=== PATIENT | female | born 1995 | race Hispanic/Latino ===

== ENCOUNTER 2017-06-05 12:38 | Inpatient (IN) | payer BC, OTHER ==
[2017-06-05 12:47] VITALS: O2SAT 99
--- NOTE | 2017-06-05 13:38 | ED PDOC ---
HPI: Psych/Substance Abuse Time Seen by Provider: 06/05/17 12:54 Chief Complaint (Nursing): Anxiety Chief Complaint (Provider): Anxiety attack History Per: Patient History/Exam Limitations: no limitations Onset/Duration Of Symptoms: Mins (prior to arrival) Current Symptoms Are (Timing): Better Associated Symptoms: Anxiety, Suicidal Thoughts Additional Complaint(s): Elda is a 22 y/o female who was brought by EMS for psychiatric evaluation. She reports a history of bipolar disorder, for which she takes Klonopin and Seroquel as needed. States that earlier today she had a panic attack and EMS was called. Patient took Klonopin and feels better now. She admits she occasionally has suicidal ideations. PMD: Provider [place] Past Medical History Reviewed: Historical Data, Nursing Documentation, Vital Signs Vital Signs: Last Vital Signs Temp 99.0 F 06/05/17 12:43 Pulse 86 06/05/17 12:43 Resp 20 06/05/17 12:43 BP 122/77 06/05/17 12:43 Pulse Ox 99 06/05/17 12:43 - Medical History PMH: Bipolar Disorder Denies: HIV - Surgical History Surgical History: No Surg Hx - Family History Family History: States: Unknown Family Hx - Social History Current smoker - smoking cessation education provided: No Alcohol: None Drugs: Denies - Allergies Allergies/Adverse Reactions: Allergies Allergy/AdvReac Type Severity Reaction Status Date / Time No Known Allergies Allergy Verified 05/29/14 00:16 Review of Systems ROS Statement: Except As Marked, All Systems Reviewed And Found Negative Psych: Positive for: Anxiety, Suicidal ideation Physical Exam - Reviewed Nursing Documentation Reviewed: Yes Vital Signs Reviewed: Yes - Physical Exam Appears: Positive for: Well, Non-toxic, No Acute Distress Head Exam: Positive for: ATRAUMATIC, NORMAL INSPECTION, NORMOCEPHALIC Skin: Positive for: Normal Color, Warm, Dry Eye Exam: Positive for: Normal appearance Neck: Positive for: Normal Cardiovascular/Chest: Positive for: Regular Rate, Rhythm. Negative for: Murmur Respiratory: Positive for: Normal Breath Sounds. Negative for: Respiratory Distress Extremity: Positive for: Normal ROM. Negative for: Pedal Edema, Deformity Neurologic/Psych: Positive for: Alert, Oriented - Laboratory Results Result Diagrams: 06/05/17 14:57 06/05/17 14:57 - ECG O2 Sat by Pulse Oximetry: 99 (RA) Pulse Ox Interpretation: Normal Medical Decision Making Medical Decision Making: Initial Plan: --Pending crisis evaluation Time: 14:21 --Discussed case with break out worker. --Patient will be admitted for observation per Dr. Baker. Clinical Impression: Bipolar disorder Scribe Attestation: Documented by Velma Quiñonez, acting as a scribe for Jeni Suazo PA-C Provider Scribe Attestation: All medical record entries made by the Scribe were at my direction and personally dictated by me. I have reviewed the chart and agree that the record accurately reflects my personal performance of the history, physical exam, medical decision making, and the department course for this patient. I have also personally directed, reviewed, and agree with the discharge instructions and disposition. Disposition - Patient ED Disposition Is Patient to be Admitted: Yes - Disposition Disposition Time: 16:18 Forms: [employer] (Belarusian) - Pt Status Changed To: Hospital Disposition Of: Inpatient - Admit Certification Admit to Inpatient:: After my assessment, the patient will require hospitalization for at least two midnights. This is because of the severity of symptoms shown, intensity of services needed, and/or the medical risk in this patient being treated as an outpatient.
[2017-06-05 15:06] LABS: HEMATOCRIT 39.5 % (34.0-47.0); MEAN CELL VOLUME 87.5 fl (81.0-99.0); MEAN CORPUSCULAR HEMOGLOBIN 30.2 pg (27.0-31.0); MEAN CORPUSCULAR HGB CONC 34.5 g/dL (33.0-37.0); RED CELL DISTRIBUTION WIDTH 12.7 % (11.5-14.5)
[2017-06-05 15:13] LABS: RBC URINE 2 /hpf (0-3); URINE BILIRUBIN NEGATIVE (NEGATIVE); URINE BLOOD NEGATIVE (NEGATIVE); URINE COLOR YELLOW (YELLOW); URINE GLUCOSE (UA) NEG (Normal); URINE KETONE NEGATIVE (NEGATIVE); URINE LEUKOCYTE ESTERASE NEG Leu/uL (Negative); URINE PROTEIN NEGATIVE (NEGATIVE); URINE UROBILINOGEN 0.2-1.0 mg/dL (0.2-1.0)
[2017-06-05 15:26] LABS: ALB/GLOB RATIO 1.3 (1.0-2.1); ALCOHOL SERUM < 10 mg/dl (0-10); ALKALINE PHOSPHATASE 58 U/L (38-126); ALT/SGPT 20 U/L (9-52); AST/SGOT 27 U/L (14-36); BILIRUBIN,TOTAL 0.4 mg/dl (0.2-1.3); BLOOD UREA NITROGEN 9 mg/dl (7-17); CARBON DIOXIDE 21 mmol/L (22-30); CHLORIDE 106 mmol/L (98-107); GFR AFRICAN-AMERICAN > 60; GLUCOSE,RANDOM 90 mg/dL (65-105); SODIUM 143 mmol/l (132-148); TOTAL PROTEIN 9.1 G/DL (6.3-8.2)
[2017-06-05] MEDS ORDERED: Magnesium Hydroxide Susp 30 ml UD PO PRN (17:56)
[2017-06-05] MEDS ORDERED: DiphenhydrAMINE 50 mg/ml Inj IM PRN (17:56)
[2017-06-05] MEDS ORDERED: Alum-Mag Hydrox-Simethicone Susp (30 mL) PO PRN (17:56)
[2017-06-05 18:30] VITALS: RESP 18
--- NOTE | 2017-06-05 18:41 | PCM.BM ---
<Lorena Zamarripa - Last Filed: 06/05/17 18:39> Treatment Plan Problems - Problems identified on initial assessmt Hopelessness/Helplessness Date Initiated: 06/05/17 Time Initiated: 18:40 Assessment reference: NA Status: Active Treatment assets and liabiliti Patient Assests: cooperative, educated, ADL independent, physically healthy Patient Liabilities: poor support system, relationship conflicts - Milieu Protocol Maintain good personal hygiene: daily Remind patient to perform daily oral care , daily Assist patient to perform ADL's, every shift Encourage regular showers Conduct patient checks and document Observation sheet: Q15 minutes Maintain personal safety: every shift Educate patient to report safety concerns to staff, every shift Monitor environment for contraband/sharps Medication safety: Monitor for expected outcome, potential side effects: every shift, Assess barriers to learning: every shift, Assess readiness for medication education: every shift <Mark Anthony Baker - Last Filed: 06/06/17 12:04> - Diagnosis (1) Bipolar II disorder Status: Acute Interventions: 06/06/17 12:04 psychotherapy pharmacotherapy
[2017-06-06 08:28] LABS: HEMATOCRIT 35.3 % (34.0-47.0); MEAN CELL VOLUME 87.6 fl (81.0-99.0); MEAN CORPUSCULAR HEMOGLOBIN 30.8 pg (27.0-31.0); MEAN CORPUSCULAR HGB CONC 35.2 g/dL (33.0-37.0); RED CELL DISTRIBUTION WIDTH 12.6 % (11.5-14.5); WHITE BLOOD COUNT 5.7 K/uL (4.8-10.8)
[2017-06-06 08:31] LABS: CHOLESTEROL 182 mg/dL (0-199)
[2017-06-06 08:34] LABS: ALB/GLOB RATIO 1.4 (1.0-2.1); ALKALINE PHOSPHATASE 45 U/L (38-126); ALT/SGPT 23 U/L (9-52); AST/SGOT 26 U/L (14-36); BILIRUBIN,TOTAL 0.3 mg/dl (0.2-1.3); BLOOD UREA NITROGEN 12 mg/dl (7-17); CALCIUM 9.2 mg/dL (8.4-10.2); CARBON DIOXIDE 25 mmol/L (22-30); CHLORIDE 108 mmol/L (98-107); GFR AFRICAN-AMERICAN > 60; GLUCOSE,RANDOM 87 mg/dL (65-105); POTASSIUM 3.9 MMOL/L (3.6-5.0); SODIUM 144 mmol/l (132-148); TOTAL PROTEIN 7.6 G/DL (6.3-8.2)
[2017-06-06 09:01] LABS: THYROID STIMULATING HORMONE 1.09 mIU/ML (0.46-4.68)
[2017-06-06 09:08] VITALS: BP 115/68; PULSE 83; TEMP 99.5
--- NOTE | 2017-06-06 12:11 | PCM.PSYCH ---
Initial Psychiatric Evaluation - Initial Psychiatric Evaluation Type of Admission: Voluntary Legal Status: Capacity Chief Complaint (in patient's own words): i was overwhelmed at school and i started to have panic attacks Patient's Reaction to Hospitalization: patient signed voluntarily for admission History of Present Illness and Precipitating Events: patient with history of bipolar II disorder and panic disorder , currently following up with therapist and psychiatrist on campus at [facility], last seen past monday patient reported feeling increasingly anxious and depressed past week due to midterm exams on day of evaluation while heading back to school, she started to experience a panic attack with difficulty to breath on the same day patient also started experiencing suicidal ideations without specific plan, patient was brought to er for evaluation patient reported feeling anxious depressed and overwhelmed with school work, history of self mutilative behavior decreased appetite, no current psychotic symptoms, denied any current manic symptoms of substan denied , occasional use of alcohol and cannabis Current Medications: Active Medications Generic Name Dose Route Start Last Admin Trade Name Freq PRN Reason Stop Dose Admin Acetaminophen 650 mg 06/05/17 17:56 Tylenol 325mg Tab PO Q4 PRN Pain, Mild (1-3) Al Hydrox/Mg Hydrox/Simethicone 30 ml 06/05/17 17:56 Maalox Plus 30 Ml PO Q4 PRN Dyspepsia Diphenhydramine HCl 50 mg 06/05/17 17:56 Benadryl IM Q6 PRN Extrapyramidal S/S Unable PO Diphenhydramine HCl 50 mg 06/05/17 18:07 Benadryl PO Q6 PRN dystonic reaction/EPS Diphenhydramine HCl 25 mg 06/05/17 18:09 Benadryl PO HS PRN Insomnia Haloperidol 5 mg 06/05/17 17:56 Haldol PO Q4 PRN Agitation Haloperidol Lactate 5 mg 06/05/17 17:56 Haldol IM Q4 PRN Agitation, Unable to Take PO Lorazepam 2 mg 06/05/17 17:56 Ativan IM Q4 PRN Anxiety/Agitation,Unable PO Lorazepam 2 mg 06/05/17 18:09 Ativan PO Q4 PRN Anxiety Magnesium Hydroxide 30 ml 06/05/17 17:56 Milk Of Magnesia PO HS PRN Constipation Quetiapine Fumarate 25 mg 06/06/17 09:00 06/06/17 09:16 Seroquel PO 25 mg BID PENG Administration Quetiapine Fumarate 300 mg 06/06/17 22:00 Seroquel PO HS [facility] Past Psychiatric History - Past Psychiatric History Explanation of prior treatment: no history of previous psychiatric hospitalization patient was diagnosed with bipolar II DISORDER ON DECEMBER 2013, since then following up with therapist and psychiatrist on campus at [place] history of self mutilative behavioras per patient last was a month ago patient place onseroquel 350 mg history of suicidal ideations but no attempts History of Abuse: denied History of ETOH/Drug Use: history of alcohol abuse , binging occasiona cannabis use Pertinent Medical Hx (Current Medical&Sleep Prob, Allergies): Allergies Allergy/AdvReac Type Severity Reaction Status Date / Time No Known Allergies Allergy Verified 05/29/14 00:16 Etonogestrel/Ethinyl Estradiol [Nuvaring Vaginal Ring] 1 vag ring PV Q28D QUEtiapine [SEROquel] 300 mg PO HS 06/05/17 QUEtiapine [Seroquel] 25 mg PO BID 06/05/17 clonazePAM [Klonopin] 1 mg PO BID PRN 06/05/17 Mental Status Examination - Personal Presentation Personal Presentation: Looks stated age - Affect Affect: Constricted, Depressed - Motor Activity Motor Activity: Calm - Reliability in Providing Information Reliability in Providing Information: Good - Speech Speech: Organized - Mood Mood: Anxious - Formal Thought Process Formal Thought Process: No Impairment - Hallucinations/Delusions Additional comments: denied perceptual disturbances non elicited - Obsessions/Compulsions Obsessions: No Compulsions: No - Cognitive Functions Orientation: Person, Place Sensorium: Alert Attention/Concentration: Attentive Estimate of Intelligence: Average Judgement: Intact, as evidence by: Good judgement Memory: Recent intact, as evidence by: Ability to recall events of the day - Risk Risk: Suicidal - Strength & Assets Inventory Strength & Assets Inventory: Family support - Limitations Additional comments: poor impulse control DSM 5 DX - DSM 5 DSM 5 Diagnosis: bipolar II diorder mre depressed panic disorder - Recommended/Plan of Treatment Treatment Recommendations and Plan of Treatment: CBT SEROQUEL 350MG DAILY Prognosis: GOOD PT HAS GOOD INSIGHT
--- NOTE | 2017-06-06 12:38 | PCM.PYCHDC ---
Mental Status Examination - Mental Status Examination Orientation: Person, Place, Situation Memory: Intact Mood: Neutral Speech: Appropriate Attention: WNL Concentration: WNL Association: WNL Fund of Knowledge: WNL Formal Thought Process: No Impairment Description of patient's judgement and insight: GOOD INSIGHT FAIR JUDGMENT Psychotic Thoughts and Behaviors: DENIED ANY PSYCHOTIC SYMPTOMS NON ELICITED Suicidal Ideation: No Current Homicidal Ideation?: No Discharge Summary - Discharge Note Reason for Hospitalization: patient signed voluntarily for admission patient with history of bipolar II disorder and panic disorder , currently following up with therapist and psychiatrist on campus at [facility], last seen past monday patient reported feeling increasingly anxious and depressed past week due to midterm exams on day of evaluation while heading back to school, she started to experience a panic attack with difficulty to breath on the same day patient also started experiencing suicidal ideations without specific plan, patient was brought to er for evaluation patient reported feeling anxious depressed and overwhelmed with school work, history of self mutilative behavior decreased appetite, no current psychotic symptoms, denied any current manic symptoms of substan denied , occasional use of alcohol and cannabis Laboratory Data: Abnormal Lab Results 06/05/17 06/05/17 06/05/17 14:57 14:57 14:57 WBC 7.0 RBC 4.51 Hgb 13.6 Hct 39.5 MCV 87.5 MCH 30.2 MCHC 34.5 RDW 12.7 Plt Count 250 Sodium 143 Potassium 4.0 Chloride 106 Carbon Dioxide 21 L Anion Gap 20 BUN 9 Creatinine 0.7 Est GFR ( Amer) > 60 Est GFR (Non-Af Amer) > 60 Random Glucose 90 Hemoglobin A1c Calcium 10.0 Total Bilirubin 0.4 AST 27 ALT 20 Alkaline Phosphatase 58 Total Protein 9.1 H Albumin 5.2 H D Globulin 3.9 Albumin/Globulin Ratio 1.3 Triglycerides Cholesterol LDL Cholesterol Direct HDL Cholesterol Total T3 TSH 3rd Generation Urine Color Yellow Urine Clarity Clear Urine pH 6.0 Ur Specific [place] 1.013 Urine Protein Negative Urine Glucose (UA) Neg Urine Ketones Negative Urine Blood Negative Urine Nitrate Negative Urine Bilirubin Negative Urine Urobilinogen 0.2-1.0 Ur Leukocyte Esterase Neg Urine RBC (Auto) 2 Ur Squamous Epith Cells 1 Hyaline Casts 0-2 Urine Opiates Screen Urine Methadone Screen Ur Barbiturates Screen Ur Phencyclidine Scrn Ur Amphetamines Screen U Benzodiazepines Scrn U Oth Cocaine Metabols U Cannabinoids Screen Alcohol, Quantitative < 10 10/23/17 10/24/17 10/24/17 15:08 08:00 08:00 WBC RBC Hgb Hct MCV MCH MCHC RDW Plt Count Sodium Potassium Chloride Carbon Dioxide Anion Gap BUN Creatinine Est GFR ( Amer) Est GFR (Non-Af Amer) Random Glucose Hemoglobin A1c 5.2 Calcium Total Bilirubin AST ALT Alkaline Phosphatase Total Protein Albumin Globulin Albumin/Globulin Ratio Triglycerides 117 Cholesterol 182 LDL Cholesterol Direct 89 HDL Cholesterol 71 H Total T3 TSH 3rd Generation Urine Color Urine Clarity Urine pH Ur Specific [place] Urine Protein Urine Glucose (UA) Urine Ketones Urine Blood Urine Nitrate Urine Bilirubin Urine Urobilinogen Ur Leukocyte Esterase Urine RBC (Auto) Ur Squamous Epith Cells Hyaline Casts Urine Opiates Screen Negative Urine Methadone Screen Negative Ur Barbiturates Screen Negative Ur Phencyclidine Scrn Negative Ur Amphetamines Screen Negative U Benzodiazepines Scrn Negative U Oth Cocaine Metabols Negative U Cannabinoids Screen Negative Alcohol, Quantitative 06/06/17 06/06/17 08:00 08:00 WBC 5.7 RBC 4.03 Hgb 12.4 Hct 35.3 MCV 87.6 MCH 30.8 MCHC 35.2 RDW 12.6 Plt Count 231 Sodium 144 Potassium 3.9 Chloride 108 H Carbon Dioxide 25 Anion Gap 15 BUN 12 Creatinine 0.8 Est GFR ( Amer) > 60 Est GFR (Non-Af Amer) > 60 Random Glucose 87 Hemoglobin A1c Calcium 9.2 Total Bilirubin 0.3 AST 26 ALT 23 Alkaline Phosphatase 45 Total Protein 7.6 Albumin 4.4 Globulin 3.2 Albumin/Globulin Ratio 1.4 Triglycerides Cholesterol LDL Cholesterol Direct HDL Cholesterol Total T3 1.12 L TSH 3rd Generation 1.09 Urine Color Urine Clarity Urine pH Ur Specific G[place] Urine Protein Urine Glucose (UA) Urine Ketones Urine Blood Urine Nitrate Urine Bilirubin Urine Urobilinogen Ur Leukocyte Esterase Urine RBC (Auto) Ur Squamous Epith Cells Hyaline Casts Urine Opiates Screen Urine Methadone Screen Ur Barbiturates Screen Ur Phencyclidine Scrn Ur Amphetamines Screen U Benzodiazepines Scrn U Oth Cocaine Metabols U Cannabinoids Screen Alcohol, Quantitative Consultations:: List each consultation separately and include: 1. Reason for request. 2. Findings. 3. Follow-up Summary of Hospital Course include:: 1. Description of specific treatment plan utilized for patients during their course of treatmen. 2. Summarize the time- course for resolution of acute symptoms and/or regressed behaviors. 3. Describe issues identified and worked on during hospitalization. 4. Describe medication utilized. 5. Describe medical problems identified and treated. 6. Reassessment of suicide risk Summary of Hospital Course: patient WAS STARTED ON SEROQUEL 350MG DAILY SUPPORTIVE THERAPY [place]WAS PROVIDED PATIENT WAS COOPERATIVE WITH TREATMENT ATTENDED GROUPS ON DISCHARGE PATIENT MENTAL STATUS WAS STABLE SHE DENIED ANY SUICIDAL OR HOMICIDAL IDEATIONS DENIED ANY THOUGHTS OF SELF HARM - Diagnosis (1) Bipolar II disorder Current Visit: Yes Status: Acute - Final Diagnosis (DSM 5) Condition upon Discharge: STABLE Disposition: HOME/ ROUTINE Follow-up Treatment Plan: PATIENT TO FOLLOW UP WITH THERAPIST AND PSYCHIATRIST AT [facility] - Antipsychotic Medications Pt discharged on 2 or more routine antipsychotic medications: No
== END 2017-06-06 13:02 | disposition home or self-care (01) | DRG 885 ==
LOC: H.ER 12:38 → H.PSYCH 16:18
PROVIDERS: ADMIT Psychiatry & Neurology Psychiatry; ATTEND Psychiatry & Neurology Psychiatry
PROC: GZHZZZZ Group Psychotherapy (ICD-10-PCS; principal; 2017-06-05)
PROC: GZ58ZZZ Individual Psychotherapy, Cognitive-Behavioral (ICD-10-PCS; 2017-06-05)
DX: F31.81 Bipolar II disorder (principal); R45.851 Suicidal ideations; F41.0 Panic disorder [episodic paroxysmal anxiety]; F12.10 Cannabis abuse, uncomplicated